=== PATIENT | female | born 1945 | race Caucasian/White ===

== ENCOUNTER 2021-01-16 16:27 | Inpatient (IN) | payer MEDICARE ==
[~2021-01-16] VITALS: Ht 154.9 cm; Wt 56.7 kg
[2021-01-16 17:17] LABS: BASOPHILS % (AUTO) 0.4 % (0.0-5.0); EOSINOPHILS % (AUTO) 0.1 % (0.0-8.0); HEMATOCRIT 38.6 % (36-48); LYMPHOCYTES % (AUTO) 9.1 % (21.0-51.0); MEAN CORPUSCULAR HEMOGLOBIN 30.4 pg (27.0-33.0); MEAN CORPUSCULAR HGB CONC 33.2 g/dL (32.0-36.0); MEAN CORPUSCULAR VOLUME 91.7 fL (79-99); MONOCYTES % (AUTO) 5.6 % (3.0-13.0); NEUTROPHILS % (AUTO) 84.2 % (40.0-77.0); PLATELET COUNT (AUTO) 161 K/uL (130-400); RED BLOOD CELL COUNT(AUTO) 4.21 MIL/uL (4.00-5.50); RED CELL DISTRIBUTION WIDTH 12.6 % (11.0-15.5); WHITE BLOOD COUNT (AUTO) 10.7 K/uL (4.8-10.8)
[2021-01-16 17:37] LABS: CREATININE 1.1 mg/dL (0.5-1.5); POTASSIUM 3.5 mmol/L (3.5-5.1)
[2021-01-16 17:41] LABS: ALBUMIN 3.5 g/dL (3.5-5.0); BILIRUBIN,TOTAL 2.2 mg/dL (0.2-1.0); TOTAL PROTEIN, SERUM 7.1 g/dL (6.0-8.3)
[2021-01-16 18:14] LABS: APPEARANCE,URINE CLEAR (CLEAR); BILIRUBIN,URINE SMALL (NEGATIVE); COLOR,URINE YELLOW (YELLOW); GLUCOSE, URINE (UA) NEGATIVE (NEGATIVE); KETONES,URINE >=80 mg/dL (NEGATIVE); LEUKOCYTE ESTERASE ,URINE TRACE (NEGATIVE); NITRATE,URINE NEGATIVE (NEGATIVE); OCCULT BLOOD,URINE MODERATE (NEGATIVE); PH,URINE 6.5 (5.0-8.0); PROTEIN,URINE TRACE mg/dL (NEGATIVE); UROBILINOGEN,URINE 0.2 mg/dL (0.2-1.0)
[2021-01-16 18:23] LABS: BACTERIA,URINE Few /HPF (None Seen); MUCUS,URINE Few LPF (None Seen); SQUAMOUS EPITHELIAL CELL,UR Moderate /HPF (0-2)
[2021-01-16] MEDS ORDERED: METRONIDAZOLE 500 MG TABLET PO SCH (18:30)
[2021-01-16] MEDS ORDERED: LEVOFLOXACIN 500 MG TABLET PO SCH (18:30)
[2021-01-16] MEDS ORDERED: 0.9%NACL 1000ML 1,000 ML IV ONE ×2 (18:43→19:00)
[2021-01-16] MEDS ORDERED: TAMSULOSIN HCL 0.4 MG CAP.ER.24H PO SCH (19:00)
[2021-01-16 19:55] LABS: INR 1.03 (0.85-1.15); PROTHROMBIN TIME 11.2 SEC (9.6-11.6)
[2021-01-16 19:56] LABS: PARTIAL THROMBOPLASTIN TIME 24.2 SEC (26.3-35.5)
[2021-01-16] MEDS: ZOSYN 3.375GM +NS 50ML IV SCH (20:54)
[2021-01-16] MEDS ORDERED: ONDANSETRON 4MG INJ IV PRN (21:00)
[2021-01-16] MEDS ORDERED: MORPHINE 2 MG SYG IV PRN (21:00)
[2021-01-16] MEDS ORDERED: HEPARIN 5,000 UNIT VIAL SQ SCH (21:00)
[2021-01-16] MEDS ORDERED: NITROGLYCERIN 0.4 MG SL TAB SL PRN (21:00)
[2021-01-16] MEDS ORDERED: ACETAMINOPHEN 325 MG TAB PO PRN ×2 (21:00)
[2021-01-16] MEDS: 0.9%NACL 1000ML 1,000 ML IV SCH (21:10)
[2021-01-16] MEDS: FAMOTIDINE 20MG TAB PO SCH (21:11)
[2021-01-16 22:28] LABS: CRP QUANTITATIVE 90.8 mg/L (0.00-9.0)
[2021-01-17 02:45] VITALS: BP 101/62
[2021-01-17 04:12] VITALS: BP 113/55
[2021-01-17] MEDS: ZOSYN 3.375GM +NS 50ML IV SCH ×3 (04:22→21:21)
[2021-01-17 06:32] LABS: BASOPHILS % (AUTO) 0.5 % (0.0-5.0); MEAN CORPUSCULAR HEMOGLOBIN 31.5 pg (27.0-33.0); MEAN CORPUSCULAR HGB CONC 33.1 g/dL (32.0-36.0); MEAN CORPUSCULAR VOLUME 95.2 fL (79-99); MONOCYTES % (AUTO) 9.2 % (3.0-13.0); NEUTROPHILS % (AUTO) 52.9 % (40.0-77.0); PLATELET COUNT (AUTO) 118 K/uL (130-400); RED BLOOD CELL COUNT(AUTO) 3.36 MIL/uL (4.00-5.50); RED CELL DISTRIBUTION WIDTH 12.8 % (11.0-15.5); WHITE BLOOD COUNT (AUTO) 7.7 K/uL (4.8-10.8)
[2021-01-17] MEDS: 0.9%NACL 1000ML 1,000 ML IV SCH (06:39)
[2021-01-17 06:56] LABS: ALBUMIN 2.7 g/dL (3.5-5.0); BILIRUBIN,TOTAL 1.1 mg/dL (0.2-1.0); CREATININE 0.9 mg/dL (0.5-1.5); POTASSIUM 3.7 mmol/L (3.5-5.1); TOTAL PROTEIN, SERUM 5.5 g/dL (6.0-8.3)
[2021-01-17 08:00] VITALS: BP 101/59
[2021-01-17] MEDS ORDERED: NITROGLYCERIN 0.4 MG SL TAB SL PRN (08:30)
[2021-01-17] MEDS: FAMOTIDINE 20MG TAB PO SCH (10:01)
[2021-01-17] MEDS: DEXTROSE 5 % AND 0.9 % NACL 1,000 ML IV SCH ×2 (10:02→21:21)
[2021-01-17 12:00] VITALS: BP 98/55
[2021-01-17] MEDS ORDERED: POTASSIUM CHLORIDE 20MEQ/100ML 100 ML IV PRN (14:30)
[2021-01-17] MEDS ORDERED: KETOROLAC 30MG VIAL (30MG/ML) IM PRN (14:30)
[2021-01-17] MEDS ORDERED: KCL 20 MEQ ERTAB PO PRN (14:30)
[2021-01-17] MEDS ORDERED: LIDOCAINE HCL-MPF 1% 2ML VIAL IV PRN (14:30)
[2021-01-17] MEDS ORDERED: POTASSIUM CHLORIDE 10% ELIXIR 20 MEQ/15 ML UDCUP PO PRN (14:30)
[2021-01-17] MEDS: TAMSULOSIN HCL 0.4 MG CAP.ER.24H PO SCH ×2 (14:47→21:21)
[2021-01-17 16:00] VITALS: BP 103/69
[2021-01-17 20:08] VITALS: BP 107/56
[2021-01-18 00:08] VITALS: BP 105/59
[2021-01-18] MEDS: DEXTROSE 5 % AND 0.9 % NACL 1,000 ML IV SCH ×2 (03:21→11:21)
[2021-01-18 04:08] VITALS: BP 134/76
[2021-01-18 04:18] LABS: HEMATOCRIT 33.2 % (36-48); MEAN CORPUSCULAR HEMOGLOBIN 31.3 pg (27.0-33.0); MEAN CORPUSCULAR HGB CONC 32.5 g/dL (32.0-36.0); MEAN CORPUSCULAR VOLUME 96.2 fL (79-99); RED BLOOD CELL COUNT(AUTO) 3.45 MIL/uL (4.00-5.50); RED CELL DISTRIBUTION WIDTH 12.8 % (11.0-15.5); WHITE BLOOD COUNT (AUTO) 6.4 K/uL (4.8-10.8)
[2021-01-18 04:31] LABS: CREATININE 0.9 mg/dL (0.5-1.5); POTASSIUM 3.5 mmol/L (3.5-5.1)
[2021-01-18] MEDS: ZOSYN 3.375GM +NS 50ML IV SCH (04:58)
[2021-01-18 08:00] VITALS: BP 133/78
[2021-01-18] MEDS: FAMOTIDINE 20MG TAB PO SCH (09:09)
[2021-01-18] MEDS: TAMSULOSIN HCL 0.4 MG CAP.ER.24H PO SCH (09:09)
[2021-01-18] MEDS ORDERED: METR-172 PO (09:16)
[2021-01-18] MEDS ORDERED: CEPH500T PO (09:16)
[2021-01-18] MEDS ORDERED: TAMS-1 PO (09:16)
[2021-01-18 12:00] VITALS: BP 145/88
== END 2021-01-18 13:35 | disposition home or self-care (01) | DRG 690 ==
LOC: EDH 16:27 → EDHIP 19:18 → 3BH 01-17 02:02
PROVIDERS: ADMIT Internal Medicine; ATTEND Internal Medicine
DX: N13.6 Pyonephrosis (principal); K57.32 Diverticulitis of large intestine without perforation or abscess without bleeding; Z20.822 Contact with and (suspected) exposure to COVID-19; N10 Acute pyelonephritis; E78.2 Mixed hyperlipidemia; E88.81 Metabolic syndrome and other insulin resistance; E86.0 Dehydration; N20.0 Calculus of kidney; Z87.891 Personal history of nicotine dependence; Z88.8 Allergy status to other drugs, medicaments and biological substances; Z83.3 Family history of diabetes mellitus; Z82.49 Family history of ischemic heart disease and other diseases of the circulatory system
CPT/HCPCS: 36415; 71045; 74176; 80048; 80053; 81001; 83605; 83690; 83735; 84145; 84484; 85025; 85027; 85610; 85730; 86140; 87040; 87088; 87635; 93005; G0378; J1644; J2543; J7030; J7042